=== PATIENT | female | born 2000 | race Caucasian/White ===

== ENCOUNTER 2020-03-30 12:06 | Emergency (ER) | payer OTHER ==
[~2020-03-30] VITALS: Ht 162.6 cm; Wt 57.2 kg
[2020-03-30 12:59] LABS: BASO % 0.3 % (0.0-1.0); EOS # 0.1 10^3/uL (0.0-0.5); EOS % 1.3 % (0.0-3.0); HEMATOCRIT 44.3 % (36.0-47.0); HEMOGLOBIN 14.4 g/dl (12.0-15.5); LYMPH % 21.2 % (24.0-44.0); MEAN CORPUSCULAR HEMOGLOBIN 28.7 pg (27.0-33.0); MEAN CORPUSCULAR HGB CONC 32.5 g/dl (32.0-36.5); MEAN CORPUSCULAR VOLUME 88.2 fl (80.0-96.0); MONO # 0.5 10^3/uL (0.0-0.8); MONO % 5.6 % (0.0-5.0); NEUTROPHILS # 6.6 10^3/uL (1.5-8.5); NEUTROPHILS % 71.4 % (36.0-66.0); PLATELET COUNT, AUTOMATED 288 10^3/uL (150-450); RED BLOOD COUNT 5.02 10^6/uL (4.00-5.40); WHITE BLOOD COUNT 9.3 10^3/uL (4.0-10.0)
[2020-03-30 13:26] LABS: CK-MB VALUE MASS < 1.0 NG/ML (<3.6); CPK CREATINE PHOSPHOKINASE 136 U/L (26-192); FREE T4 1.25 NG/DL (0.78-1.33); MB/CK RELATIVE INDEX 0.74 (< OR =4); THYROID STIMULATING HORMONE 0.591 uIU/ML (0.463-3.98); TROPONIN I < 0.02 NG/ML (< 0.10)
[2020-03-30 14:09] VITALS: BP 112/72
--- NOTE | 2020-03-31 08:57 | ECGEPIP ---
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
== END 2020-03-30 14:10 | disposition home or self-care (01) ==
LOC: M ED 12:06
DX: F41.1 Generalized anxiety disorder (principal); F41.0 Panic disorder [episodic paroxysmal anxiety]; J45.909 Unspecified asthma, uncomplicated

== ENCOUNTER 2020-05-17 16:28 | Emergency (ER) | payer OTHER ==
[~2020-05-17] VITALS: Ht 162.6 cm; Wt 56.0 kg
[2020-05-17] MEDS ORDERED: citalopram (16:35)
[2020-05-17 18:07] LABS: BASO % 0.3 % (0.0-1.0); HEMOGLOBIN 15.1 g/dl (12.0-15.5); LYMPH % 17.2 % (24.0-44.0); MEAN CORPUSCULAR HEMOGLOBIN 29.3 pg (27.0-33.0); MEAN CORPUSCULAR HGB CONC 33.6 g/dl (32.0-36.5); MEAN CORPUSCULAR VOLUME 87.2 fl (80.0-96.0); MONO # 0.6 10^3/uL (0.0-0.8); MONO % 5.4 % (0.0-5.0); NEUTROPHILS # 9.1 10^3/uL (1.5-8.5); NEUTROPHILS % 76.8 % (36.0-66.0); PLATELET COUNT, AUTOMATED 330 10^3/uL (150-450); RED BLOOD COUNT 5.16 10^6/uL (4.00-5.40); WHITE BLOOD COUNT 11.8 10^3/uL (4.0-10.0)
[2020-05-17 18:30] LABS: HCG, SERUM QUALITATIVE NEGATIVE (NEGATIVE)
[2020-05-17 18:31] LABS: INR 1.15; PARTIAL THROMBOPLASTIN TIME 30.2 SECONDS (25.0-38.4); PROTHROMBIN TIME 14.4 SECONDS (11.8-14.0)
[2020-05-17 18:34] LABS: D-DIMER QUANT 1719.57 ng/ml (<500)
[2020-05-17 18:42] LABS: BLOOD UREA NITROGEN 9 MG/DL (7-18); CALCIUM LEVEL 9.6 MG/DL (8.5-10.1); CARBON DIOXIDE LEVEL 22 MEQ/L (21-32); CHLORIDE LEVEL 108 MEQ/L (98-107); CK-MB VALUE MASS < 1.0 NG/ML (<3.6); CPK CREATINE PHOSPHOKINASE 102 U/L (26-192); CREATININE FOR GFR 0.84 MG/DL (0.55-1.30); FREE T4 1.29 NG/DL (0.78-1.33); GLUCOSE, FASTING 83 MG/DL (70-100); MAGNESIUM LEVEL 2.1 MG/DL (1.4-2.0); MB/CK RELATIVE INDEX 0.98 (< OR =4); POTASSIUM SERUM 3.4 MEQ/L (3.5-5.1); SODIUM LEVEL 137 MEQ/L (136-145); TROPONIN I < 0.02 NG/ML (< 0.10)
--- NOTE | 2020-05-17 18:50 | REPVR ---
PROCEDURE INFORMATION: Exam: CT Head Without Contrast Exam date and time: 05/17/2020 6:41 PM Age: 19 years old Clinical indication: Syncope and collapse TECHNIQUE: Imaging protocol: Computed tomography of the head without contrast. Axial and coronal reformatted images were created and reviewed. Radiation optimization: All CT scans at this facility use at least one of these dose optimization techniques: automated exposure control; mA and/or kV adjustment per patient size (includes targeted exams where dose is matched to clinical indication); or iterative reconstruction. COMPARISON: No relevant prior studies available. FINDINGS: Brain: No CT evidence of acute intracranial hemorrhage or acute territorial infarction. No significant mass effect or midline shift. Basal cisterns patent. Ventricles: Normal in size and configuration. Bones/joints: No acute osseous abnormality. Sinuses: Grossly unremarkable. Mastoid air cells: Grossly unremarkable. Soft tissues: Grossly unremarkable. IMPRESSION: No CT evidence of acute intracranial pathology. Electronically signed by: Mario Knight On 05/17/2020 18:49:31 PM
[2020-05-17 19:16] LABS: AMPHETAMINES LEVEL URINE NEGATIVE (NEGATIVE); BARBITURATES URINE NEGATIVE (NEGATIVE); BENZODIAZEPINES URINE NEGATIVE (NEGATIVE); CANNABINOIDS URINE NEGATIVE (NEGATIVE); COCAINE METABOLITE URINE NEGATIVE (NEGATIVE); METHADONE URINE NEGATIVE (NEGATIVE); OPIATES URINE NEGATIVE (NEGATIVE); PHENCYCLIDINE URINE NEGATIVE (NEGATIVE)
[2020-05-17] MEDS ORDERED: ISOVUE-370 76% 100ML VIAL As Ordered ONE (19:34)
--- NOTE | 2020-05-17 19:55 | REPVR ---
PROCEDURE INFORMATION: Exam: CT Angiography Chest With Contrast Exam date and time: 05/17/2020 7:38 PM Age: 19 years old Clinical indication: Abnormal findings; Abnormal diagnostic tests; Elevated d-dimer; Additional info: R/O pe TECHNIQUE: Imaging protocol: Computed tomographic angiography of the chest with intravenous contrast. Axial, coronal and sagittal reformatted images were created and reviewed. 3D rendering: MIP and/or 3D reconstructed images were created by the technologist. Radiation optimization: All CT scans at this facility use at least one of these dose optimization techniques: automated exposure control; mA and/or kV adjustment per patient size (includes targeted exams where dose is matched to clinical indication); or iterative reconstruction. Contrast material: ISOVUE 370; Contrast volume: 75 ml; Contrast route: INTRAVENOUS (IV); COMPARISON: No relevant prior studies available. FINDINGS: Pulmonary arteries: Contrast opacification satisfactory. No intraluminal filling defect. Aorta: Unremarkable. No aneurysm or dissection. Lungs: Unremarkable. No consolidation. No mass. Pleural space: Unremarkable. No pneumothorax. No pleural effusion. Heart: Unremarkable. No cardiomegaly. No pericardial effusion. Lymph nodes: No pathologically enlarged lymph nodes. Bones/joints: No acute osseous abnormality. Soft tissues: Unremarkable. IMPRESSION: No CT evidence of pulmonary embolism. Electronically signed by: Mario Knight On 05/17/2020 19:54:55 PM
[2020-05-17] MEDS ORDERED: ALPRAZolam 0.25 MG TAB PO ONE (20:15)
[2020-05-17] MEDS ORDERED: HYDR1CAP25 PO (20:47)
[2020-05-17 20:57] VITALS: BP 124/76
--- NOTE | 2020-05-17 21:05 | ECGEPIP ---
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
== END 2020-05-17 21:01 | disposition home or self-care (01) ==
LOC: M ED 16:28
DX: F41.1 Generalized anxiety disorder (principal); R25.1 Tremor, unspecified; J45.909 Unspecified asthma, uncomplicated; F32.9 Major depressive disorder, single episode, unspecified
CPT/HCPCS: 70450; 71275; 80048; 80307; 82550; 82553; 83735; 84439; 84443; 84484; 84703; 85025; 85379; 85610; 85730; 93005; 99284; Q9967

== ENCOUNTER 2020-05-18 11:55 | Emergency (ER) | payer OTHER ==
[~2020-05-18] VITALS: Ht 162.6 cm; Wt 54.5 kg
[~2020-05-18 11:55] MED LIST: HYDR1CAP25 PO; citalopram
[2020-05-18] MEDS ORDERED: LORazepam 1 MG TAB PO STA (12:38)
--- NOTE | 2020-05-18 14:33 | REP ---
CT study of the cervical spine without contrast: History: Upper extremity paresthesias. Technique: Helical scanning is acquired and overlapping 2 mm high resolution axial images were generated and reviewed at bone and soft tissue window settings. Coronal and sagittal multiplanar re-formations images are generated. CT findings: There is reversal of the normal cervical lordosis. There is no evidence of cervical spine element fracture. No skull base fracture is seen. Cervical vertebral body heights are preserved. Alignment is otherwise normal. Facet joints are normally aligned bilaterally at each cervical level on multiplanar re-formations images. There is no evidence of intraspinal or paraspinal hematoma. No extra vertebral abnormality is seen. Impression: Reversal of the normal cervical lordosis. Otherwise negative CT study of the cervical spine without contrast. No fracture seen. Electronically Signed by Spencer Don MD 05/18/2020 02:25 P
[2020-05-18 15:08] LABS: HEMATOCRIT 43.8 % (36.0-47.0); HEMOGLOBIN 14.9 g/dl (12.0-15.5); MEAN CORPUSCULAR HEMOGLOBIN 29.4 pg (27.0-33.0); MEAN CORPUSCULAR VOLUME 86.6 fl (80.0-96.0); PLATELET COUNT, AUTOMATED 347 10^3/uL (150-450); RED BLOOD COUNT 5.06 10^6/uL (4.00-5.40); WHITE BLOOD COUNT 9.3 10^3/uL (4.0-10.0)
[2020-05-18 15:43] LABS: ACETAMINOPHEN LEVEL < 2.0 UG/ML (10.0-30.0); ALBUMIN 4.1 GM/DL (3.2-5.2); ALT/SGPT 16 U/L (12-78); BILIRUBIN,DIRECT 0.2 MG/DL (0.0-0.2); BILIRUBIN,TOTAL 0.5 MG/DL (0.2-1.0); BLOOD UREA NITROGEN 9 MG/DL (7-18); CALCIUM LEVEL 9.7 MG/DL (8.5-10.1); CARBON DIOXIDE LEVEL 23 MEQ/L (21-32); CHLORIDE LEVEL 107 MEQ/L (98-107); CREATININE FOR GFR 0.82 MG/DL (0.55-1.30); ETHYL ALCOHOL (ETHANOL) 0.003 % (0.000-0.010); GLUCOSE, FASTING 81 MG/DL (70-100); POTASSIUM SERUM 3.9 MEQ/L (3.5-5.1); SALICYLATE LEVEL < 1.7 MG/DL (5.0-30.0); SODIUM LEVEL 138 MEQ/L (136-145); THYROID STIMULATING HORMONE 0.544 uIU/ML (0.463-3.98); TOTAL PROTEIN 7.7 GM/DL (6.4-8.2)
[2020-05-18 17:20] VITALS: BP 127/76
--- NOTE | 2020-05-19 09:38 | ECGEPIP ---
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
== END 2020-05-18 17:23 | disposition home or self-care (01) ==
LOC: M ED 11:55
DX: F41.0 Panic disorder [episodic paroxysmal anxiety] (principal); J45.909 Unspecified asthma, uncomplicated; M43.8X2 Other specified deforming dorsopathies, cervical region
CPT/HCPCS: 72125; 80048; 80076; 84443; 85027; 93005; 99284; G0480

== ENCOUNTER 2020-06-09 20:48 | Emergency (ER) | payer OTHER ==
[~2020-06-09] VITALS: Ht 162.6 cm; Wt 54.5 kg
[2020-06-09] MEDS ORDERED: ALPRAZolam 0.5 MG TAB PO ONE (21:45)
[2020-06-09 21:59] LABS: BASO % 0.2 % (0.0-1.0); EOS # 0.1 10^3/uL (0.0-0.5); EOS % 0.8 % (0.0-3.0); HEMATOCRIT 40.2 % (36.0-47.0); HEMOGLOBIN 13.9 g/dl (12.0-15.5); LYMPH # 2.6 10^3/uL (1.5-5.0); LYMPH % 19.9 % (24.0-44.0); MEAN CORPUSCULAR HEMOGLOBIN 29.6 pg (27.0-33.0); MEAN CORPUSCULAR HGB CONC 34.6 g/dl (32.0-36.5); MEAN CORPUSCULAR VOLUME 85.5 fl (80.0-96.0); MONO # 0.9 10^3/uL (0.0-0.8); MONO % 7.1 % (0.0-5.0); NEUTROPHILS # 9.4 10^3/uL (1.5-8.5); NEUTROPHILS % 71.6 % (36.0-66.0); PLATELET COUNT, AUTOMATED 280 10^3/uL (150-450); WHITE BLOOD COUNT 13.1 10^3/uL (4.0-10.0)
[2020-06-09] MEDS: NS 1,000 ML IV ONE ×2 (22:00→22:13)
[2020-06-09] MEDS ORDERED: GI COCKTAIL 50ML BTL(HYOSCYAMINE/MAALOX/LIDOCAINE VISCOUS)(1:3:1) PO ONE (22:00)
[2020-06-09 22:11] LABS: INR 1.17; PROTHROMBIN TIME 14.6 SECONDS (11.8-14.0)
[2020-06-09 22:40] LABS: ALBUMIN 4.1 GM/DL (3.2-5.2); ALT/SGPT 15 U/L (12-78); BILIRUBIN,DIRECT < 0.1 MG/DL (0.0-0.2); BILIRUBIN,TOTAL 0.3 MG/DL (0.2-1.0); CK-MB VALUE MASS 1.4 NG/ML (<3.6); CPK CREATINE PHOSPHOKINASE 274 U/L (26-192); LIPASE 120 U/L (73-393); MB/CK RELATIVE INDEX 0.51 (< OR =4); TOTAL PROTEIN 7.5 GM/DL (6.4-8.2); TROPONIN I < 0.02 NG/ML (< 0.10)
[2020-06-09 23:32] LABS: FREE T4 1.31 NG/DL (0.78-1.33)
[2020-06-09] MEDS ORDERED: OMEP-218 PO (23:44)
[2020-06-09 23:46] VITALS: BP 117/79
--- NOTE | 2020-06-10 05:38 | ECGEPIP ---
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
--- NOTE | 2020-06-10 08:07 | REP ---
REASON: Chest pain. FINDINGS: The technique utilized in obtaining the radiograph has magnified the cardiac silhouette and accentuated the interstitial markings. The superior mediastinal structures are midline. The cardiac silhouette is unremarkable in size, shape, and position. The diaphragmatic surfaces of the lungs are regular, and the costophrenic angles are clear. The pulmonary howard are clear. The imaged osseous structures are intact. IMPRESSION: There is no acute cardiopulmonary disease. Electronically Signed by Nolan Nesbitt DO 06/10/2020 08:11 A
== END 2020-06-10 00:06 | disposition home or self-care (01) ==
LOC: M ED 20:48
DX: F41.9 Anxiety disorder, unspecified (principal); K21.9 Gastro-esophageal reflux disease without esophagitis; Z79.899 Other long term (current) drug therapy

== ENCOUNTER → 2020-10-29 | Outpatient (CLI) | payer OTHER ==
[~2020-10-29] MED LIST changes: +OMEP-218 PO
--- NOTE | 2020-10-29 09:58 | REP ---
INDICATION: Z32.01 GESTATIONAL DATING. Supervision of . COMPARISON: None. TECHNIQUE: Transabdominal obstetric scanning. FINDINGS: Scanning through the gravid uterus demonstrates a viable single intrauterine gestation in variable lie. motion is observed and heart rate is recorded at 147 beats per minute. A posterior placenta is seen, grade 0, without evidence of placenta previa. Amniotic fluid is subjectively normal. Closed cervical length is measured at 3.5 cm transabdominally. No extrauterine abnormality is observed. The following anatomic structures are identified and felt to be unremarkable: Intracranial anatomy, face and profile, diaphragm, left-sided stomach, urinary bladder, and three-vessel cord. anatomic survey limited due to early gestational age.. Biometry chart: BPD 3.0 cm 15 weeks 3 days Head circumference 11.0 cm 15 weeks 2 days Abdominal circumference 9.0 cm 15 weeks 1 day Femur length 1.7 cm 15 weeks 0 days Humeral length 1.6 cm 14 weeks 3 days HC AC ratio normal 1.23 Cephalic index normal 0.75 Estimated weight 116 g, 0 lb 4 oz IMPRESSION: Viable single intrauterine gestation at 15 weeks 1 days by today's composite sonographic criteria. KYLE by today's sonography April 21, 2021. No complication identified. Limited and anatomy due to early gestational age. <Electronically signed by Jose Don > 10/29/20 0900
== END ==
LOC: M WHC 08:37
PROVIDERS: ATTEND Physician Assistant
DX: Z32.01 Encounter for pregnancy test, result positive (principal); Z3A.15 15 weeks gestation of pregnancy

== ENCOUNTER → 2023-01-22 | Outpatient (REF) ==
[~2023-01-22] MED LIST changes: +OMEP-173 PO; -OMEP-218 PO
== END ==
LOC: M PLAIMG 10:50
PROVIDERS: ATTEND Internal Medicine
DX: R06.02 Shortness of breath (principal)